=== PATIENT | male | born 1995 | race Two or more races ===

== ENCOUNTER 2023-11-15 22:45 | Emergency (ER) | payer OTHER ==
[~2023-11-15] VITALS: Ht 195.6 cm; Wt 77.1 kg
[~2023-11-15 22:45] MED LIST: AMOX-CLAV 875-1 EACH PO
[2023-11-16] MEDS ORDERED: METHYLPREDNISOLONE SOD SUCC 125 MG VIAL IM STA (00:35)
[2023-11-16] MEDS ORDERED: BETAMETHASONE D15 G2 TOP (00:38)
[2023-11-16] MEDS ORDERED: METHYLPREDNISOLONE SOD SUCC 125 MG VIAL ONE (00:38)
== END 2023-11-16 00:45 ==
LOC: ER
DX: L55.9 Sunburn, unspecified (principal)

== ENCOUNTER 2024-03-30 01:07 | Emergency (ER) | payer OTHER ==
[~2024-03-30] VITALS: Ht 193 cm; Wt 81.6 kg
[~2024-03-30 01:07] MED LIST changes: +BETAMETHASONE D15 G2 TOP
[2024-03-30 01:15] VITALS: BP 147/87; O2SAT 100
[2024-03-30] MEDS ORDERED: CEFTRIAXONE SODIUM 1,000 MG VIAL IM STA (02:56)
[2024-03-30] MEDS ORDERED: OSEL75CA PO (04:14)
[2024-03-30] MEDS ORDERED: DOLOGESIC-DF 51 EACH PO (04:14)
[2024-03-30] MEDS ORDERED: ORASEP SPRAY30 ML MM (04:14)
== END 2024-03-30 04:30 ==
LOC: ER 01:09
DX: J10.1 Influenza due to other identified influenza virus with other respiratory manifestations (principal); Z20.822 Contact with and (suspected) exposure to COVID-19